=== PATIENT | male | born 1965 | race Caucasian/White ===

== ENCOUNTER 2022-05-12 18:24 | Emergency (ER) | payer BC ==
[~2022-05-12] VITALS: Ht 162.6 cm; Wt 86.2 kg
[2022-05-12 18:36] VITALS: BP_SYST 159
--- NOTE | 2022-05-12 18:47 | NUR ---
Patient to ER bed 06 to gown for evaluation. Side rails up.
[2022-05-12] MEDS ORDERED: NACL 0.9% 1,000 ML IV ONE (19:00)
[2022-05-12] MEDS ORDERED: KETOROLAC TROMETHAMINE 15 MG VIAL IVP ONE (19:00)
--- NOTE | 2022-05-12 19:01 | NUR ---
patient to ed at this time with n/v/d for one day. patient has complaints of difficulty urination. Patient has a history of kidney stones. iv started in right ac and labs drawn, shelby given report.
--- NOTE | 2022-05-12 19:07 | NUR ---
patient unable to urinate, diarreha at this time
--- NOTE | 2022-05-12 19:15 | NUR ---
Received report from day shift RN, assuming care of patient at this time.
--- NOTE | 2022-05-12 19:19 | NUR ---
Patient back from CT via wheelchair; accompained by radiology.
[2022-05-12 19:21] LABS: BASOPHILS # (AUTO) 0.2 K/uL (0.0-0.2); BASOPHILS % (AUTO) 1.3 % (0.0-2.0); EOSINOPHILS # (AUTO) 0.3 K/uL (0.0-0.4); EOSINOPHILS % (AUTO) 2.8 % (0.0-4.0); HEMATOCRIT 41.3 % (36-54); HEMOGLOBIN 14.1 g/dL (14.0-18.0); LYMPHOCYTES # (AUTO) 2.1 K/uL (1.0-5.5); LYMPHOCYTES % (AUTO) 17.5 % (20.5-51.5); MEAN CORPUSCULAR HEMOGLOBIN 30 pg (27-31); MEAN CORPUSCULAR HGB CONC 34 % (32-36); MEAN CORPUSCULAR VOLUME 89 fL (79.0-98.0); MONOCYTES # (AUTO) 0.6 K/uL (0.0-1.0); MONOCYTES % (AUTO) 5.2 % (1.7-9.3); NEUTROPHILS # (AUTO) 8.9 K/uL (1.8-7.7); NEUTROPHILS % (AUTO) 73.2 % (40.0-70.0); PLATELET COUNT (AUTO) 269 K/uL (130-430); RED BLOOD CELL COUNT(AUTO) 4.63 MIL/uL (4.2-6.2); RED CELL DISTRIBUTION WIDTH 14.5 % (9.0-15.0); WHITE BLOOD COUNT (AUTO) 12.2 K/uL (4.8-10.8)
--- NOTE | 2022-05-12 19:30 | NUR ---
Patient A/Ox4, VSS, ambulatory, resp even and unlabored. Patient resting comfortably in bed with side rails raised. Nad noted at this time.
[2022-05-12 20:27] LABS: CALCIUM 8.8 mg/dL (8.4-11.0); CREATININE 1.57 mg/dL (0.55-1.30); POTASSIUM 3.3 mmol/L (3.5-5.1)
[2022-05-12 20:35] LABS: ALBUMIN 4.3 g/dL (3.4-4.8); TOTAL BILIRUBIN 0.5 mg/dL (0.0-1.0)
[2022-05-13 00:26] LABS: BILIRUBIN,URINE NEGATIVE (NEGATIVE); BLOOD, URINE NEGATIVE (NEGATIVE); CLARITY/URINE CLEAR (CLEAR); COLOR,URINE YELLOW (YELLOW); GLUCOSE,URINE NEGATIVE (NEGATIVE); KETONES,URINE TRACE (NEGATIVE); LEUKOCYTE ESTERASE ,URINE NEGATIVE (NEGATIVE); NITRITE, URINE NEGATIVE (NEGATIVE); PROTEIN URINE NEGATIVE (NEGATIVE); UROBILINOGEN,URINE 0.2 (0.2-1.0)
[2022-05-13] MEDS ORDERED: IBUP-1969 PO (00:51)
[2022-05-13 01:47] VITALS: BP_SYST 112
--- NOTE | 2022-05-13 01:48 | NUR ---
Patient given written and verbal discharge instructions and verbalizes understanding. ER MD discussed with patient the results and treatment provided. Patient in stable condition. ID arm band removed. IV catheter removed intact and dressing applied, no active bleeding. Rx of IBRUPROFEN given. Patient educated on pain management and to follow up with PMD. Pain Scale 0/10. Opportunity for questions provided and answered. Medication side effect fact sheet provided.
--- NOTE | 2022-05-13 01:48 | NUR ---
NS 1L started at 1908 hrs, ended at 2007 hrs
== END 2022-05-13 01:47 | disposition home or self-care (01) ==
LOC: SED 18:24
DX: N20.0 Calculus of kidney (principal); R10.9 Unspecified abdominal pain; R11.2 Nausea with vomiting, unspecified; Z79.899 Other long term (current) drug therapy
CPT/HCPCS: 99284; 74176; 96374; 96361; 80053; 85025; 36415; 76376; 81003; J1885; J7030